=== PATIENT | female | born 1980 | race Asian ===

== ENCOUNTER → 2018-09-10 19:39 | Emergency (ER) | payer BC ==
[~2018-09-10 19:39] MED LIST: Lidocaine Patch REMOVE* 1 NOTE MISC SCH
--- NOTE | 2018-09-10 20:11 | ED ---
Back Pain - HPI Summary HPI Summary: Pt is a 38 y/o female who presents to the ED s/p back injury. At 13:30 today she fell on the stairs and hit her lower back. Pt initially thought she pulled a muscle, but now feels that it is a spinal issue. She states when standing up straight, the pain is only a mild ache. With twisting movement, sitting down, or lying down she reports intense burning pain. The pain is centralized to a point on her low back, and the pain is reproduced when touching this point. The pain is non-radiating. Pt denies any numbness, paresthesia, hematuria, incontinence, or bruising. She has been using a Flector patch and ice for the pain. She denies any prior back problems or injuries. LNMP 3 weeks ago. - History of Current Complaint Chief Complaint: EDBackInjuryPain Stated Complaint: BACK PAIN Time Seen by Provider: 09/10/18 20:06 Hx Obtained From: Patient Onset/Duration: Sudden Onset, Lasting Hours - 13:30 today, Still Present Timing: Constant Back Pain Location: Is Discrete @ - low back Severity Currently: Moderate Pain Intensity: 4 Pain Scale Used: 0-10 Numeric Character: Burning Aggravating Symptom(s): Movement, Other - Lying down, sitting Alleviating Symptom(s): Cold, Other - Flector patch, standing up straight Associated Signs And Symptoms: Negative: Bruising, Numbness, Tingling, Bladder Incontinence, Bowel Incontinence - Allergies/Home Medications Allergies/Adverse Reactions: Allergies Allergy/AdvReac Type Severity Reaction Status Date / Time No Known Allergies Allergy Verified 09/10/18 19:45 PMH/Surg Hx/FS Hx/Imm Hx Endocrine/Hematology History: Denies: Hx Diabetes Cardiovascular History: Denies: Hx Hypertension Musculoskeletal History: Denies: Hx Back Problems Infectious Disease History: No Infectious Disease History: Denies: Traveled Outside the [place] in Last 30 Days - Family History Known Family History: Positive: Diabetes - Social History Alcohol Use: Occasionally Hx Substance Use: No Substance Use Type: Reports: None Hx Tobacco Use: No Smoking Status (MU): Never Smoked Tobacco Review of Systems Negative: hematuria, incontinence Positive: Myalgia - Low back pain Negative: Bruising Negative: Paresthesia, Numbness All Other Systems Reviewed And Are Negative: Yes Physical Exam - Summary Physical Exam Summary: Appearance: Well appearing, no pain distress Skin: warm, dry, reflects adequate perfusion Head/face: normal Eyes: EOMI, GRIFFIN ENT: mucous membranes moist Neck: supple, non-tender Respiratory: CTA, breath sounds present Cardiovascular: RRR, pulses symmetrical Abdomen: non-tender, soft Bowel Sounds: present Musculoskeletal: tenderness to right lower lumbar area without any palpable hematoma or swelling, full ROM of legs, normal gait, negative straight leg raises, slight bent over posture Neuro: normal, sensory motor intact, A&Ox3 Triage Information Reviewed: Yes Vital Signs On Initial Exam: Initial Vitals Temp Pulse Resp BP Pulse Ox 99 F 62 20 146/79 94 09/10/18 19:40 09/10/18 19:40 09/10/18 19:40 09/10/18 19:40 09/10/18 19:40 Vital Signs Reviewed: Yes Diagnostics - Vital Signs Vital Signs Temp Pulse Resp BP Pulse Ox 09/10/18 19:40 99 F 62 20 146/79 94 - Laboratory Lab Statement: Any lab studies that have been ordered have been reviewed, and results considered in the medical decision making process. - Radiology Lumbar Spine XR Radiology Interpretation Completed By: ED Physician Summary of Radiographic Findings: Non-displaced fracture of right L4 superior pedicle. Pending official radiology report. - Ultrasound No standard instances Ultrasound Interpretation Completed By: ED Physician Summary of Ultrasound Findings: Bedside US performed by ED physician: no hematoma or free fluid. Back Pain Course/Dx - Course Course Of Treatment: Nurse's notes reviewed. 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 There is possibility of a nondisplaced fracture of the superior facet on the right side of L4. She is neurologically intact with normal gait. There is no hematoma seen on bedside ultrasound of the soft tissues. I offered CT scan which she declined. She will follow-up with spine surgery. Pain treated with Lidoderm patch, oral NSAID and a Percocet. Continue Lidoderm and Mobic. - Diagnoses Differential Diagnosis/HQI/PQRI: Positive: Fracture, Herniated Disc, Strain, Sprain Provider Diagnoses: Lumbar vertebral fracture, Fall, Lumbar contusion Discharge - Sign-Out/Discharge Documenting (check all that apply): Patient Departure - Discharge - Discharge Plan Condition: Improved Disposition: HOME Prescriptions: Lidocaine PATCH 5%* [Lidoderm 5% Patch*] 1 patch TRANSDERM DAILY PRN #1 box PRN Reason: back pain Meloxicam [Mobic] 7.5 mg PO DAILY PRN #30 tablet PRN Reason: Pain Patient Education Materials: Thoracolumbar Fracture (ED) Referrals: Chiquita Meléndez MD [Primary Care Provider] - Additional Instructions: With continued pain further imaging such as CT scan is indicated. Follow up with orthopedic spine are neurosurgery spine doctor as needed. Patches remain on for 12 hours each day. Return with new numbness/weakness, difficulty with bowel or bladder, worse, new symptoms or other concerns. - Billing Disposition and Condition Condition: IMPROVED Disposition: Home - Attestation Statements Document Initiated by Chiquita: Yes Documenting Scribe: aCssandra Harden Provider For Whom Chiquita is Documenting (Include Credential): Naseem Oglesby MD Scribe Attestation: Cassandra Kelly scribed for Naseem Oglesby MD on 09/10/18 at 2353. Scribe Documentation Reviewed: Yes Provider Attestation: The documentation as recorded by the Cassandra menjivar accurately reflects the service I personally performed and the decisions made by Naseem johansen MD Status of Scribe Document: Viewed
[2018-09-10] MEDS: Lidocaine PATCH 5%* 1 PATCH TRANSDERM SCH (20:41)
[2018-09-10] MEDS: oxyCODONE/Acetamin 5/325 MG* TAB PO ONE (21:13)
[2018-09-10] MEDS: Naproxen TAB* 250 MG PO ONE (21:13)
[2018-09-10 21:22] VITALS: BP 120/74
== END | disposition home or self-care (01) ==
LOC: ED 19:39
DX: S32.049A Unspecified fracture of fourth lumbar vertebra, initial encounter for closed fracture (principal); S30.0XXA Contusion of lower back and pelvis, initial encounter; W10.9XXA Fall (on) (from) unspecified stairs and steps, initial encounter; Y92.9 Unspecified place or not applicable
CPT/HCPCS: 72110; 99282; A9270-GY